=== PATIENT | male | born 1955 | race African-American/Black ===

== ENCOUNTER 2018-05-04 10:08 | Day surgery (SDC) | payer OTHER ==
[2018-05-03 09:34] VITALS: BMI 18.9
[2018-05-04] MEDS ORDERED: MIDAZOLAM HCL 2 MG/2 ML SINGLE DOSE VIAL ONE ×2 (11:49→12:42)
--- NOTE | 2018-05-04 12:14 | OP ---
Operative Note - Note: Operative Date: 05/04/18 Pre-Operative Diagnosis: ca prostate Operation: prostate cryoablation and cystoscopy Post-Operative Diagnosis: Same as Pre-op Surgeon: Milton Pabon Anesthesiologist/FINISHER TAILOR APPRENTICE: Nirmal Mcwilliams Anesthesia: Spinal Estimated Blood Loss (mls): 0 Drains & Tubes with Location: 18 fr molina Operative Report Dictated: Yes
[2018-05-04] MEDS ORDERED: ceFAZolin SODIUM 1 GM VIAL IVPB ONE (12:28)
[2018-05-04] MEDS ORDERED: GLYCOPYRROLATE 0.2 MG/1 ML VIAL ONE (12:32)
[2018-05-04] MEDS ORDERED: PROPOFOL 20 ML ONE ×2 (12:55→13:41)
[2018-05-04] MEDS ORDERED: SODIUM CHLORIDE 0.9% P/F 10 ML VIAL IJ ONE (13:08)
[2018-05-04] MEDS ORDERED: ceFAZolin SODIUM 1 GM VIAL ONE (13:08)
[2018-05-04] MEDS ORDERED: PROMETHAZINE HCL 25 MG/1 ML VIAL IVPUSH PRN (14:20)
[2018-05-04] MEDS ORDERED: ONDANSETRON 4 MG/2 ML VIAL IVPUSH PRN (14:20)
[2018-05-04] MEDS ORDERED: LACTATED RINGERS SOLUTION 1,000 ML IV SCH (14:30)
[2018-05-04] MEDS: LABETALOL HCL 5 MG/1 ML (100MG/20 ML VIAL) IVPUSH ONE ×2 (14:45→15:00)
[2018-05-04 17:51] VITALS: BP 152/91; PULSE 77; TEMP 98
--- NOTE | 2018-05-05 06:25 | OP ---
DATE OF OPERATION: 05/04/2018 PREOPERATIVE DIAGNOSIS: Prostate cancer. POSTOPERATIVE DIAGNOSIS: Prostate cancer. PROCEDURE: Prostate cryoablation, cystoscopy. SURGEON: Justin Pabon MD DRAPERY INSTALLER: None. ANESTHESIA: Spinal. ANESTHESIOLOGIST: Nirmal Mcwilliams CRNA and John Paul West MD SPECIMENS: None. CULTURES: None. DRAINS: An 18-Yakut Magana catheter. ESTIMATED BLOOD LOSS: Negligible. COMPLICATIONS: None. DESCRIPTION OF PROCEDURE: The patient was brought into the operating room and placed on the operating room table in supine position. After administration of spinal anesthesia, intravenous antibiotics were administered and the perineum and genitals were prepped and draped in the usual sterile manner with the patient in the dorsal lithotomy position. An 18-Yakut Magana catheter was placed per urethra. Then 10 mL was placed in the balloon. It was placed on gravity drainage and then the bladder was filled with 400 mL of sterile normal saline and clamped. Transrectal ultrasound was now inserted, and transrectal ultrasound of the prostate was done, and a plan was devised for the cryoablation. Now the grid and paddle were placed and the cryoablation probes, 4 of them were placed in the appropriate locations. The temperature probes were placed in the external exudative pharyngitis in Denonvilliers' fascia. Cystoscopy was done and confirmed that they were not penetrating the urethra nor were in the bladder. A Super Stiff guidewire was passed. The urethra warmer was passed over the Super Stiff guidewire prior to commencing the cryoablation. Now 2 freeze/thaw cycles were done freezing the right side of the prostate. At the end of the procedure, the probes were removed. Urethral warmer was left in place. At the end of the cryoablation, all probes and temperature sensors were removed. Urethral warmer was left in place. A sterile compressive dressing was placed. An 18-Yakut Magana catheter was replaced. He tolerated the procedure well and transferred to recovery in stable condition. JUSTIN PABON M.D. [id number]
== END 2018-05-04 17:45 | disposition home or self-care (01) ==
LOC: JASU-SURG 10:08
PROVIDERS: ATTEND Urology
PROC: 0V503ZZ Destruction of Prostate, Percutaneous Approach (ICD-10-PCS; principal; 2018-05-04 12:00)
DX: C61 Malignant neoplasm of prostate (principal)
CPT/HCPCS: 55873; C2618; 94760

== ENCOUNTER 2019-06-25 14:54 | Inpatient (IN) | payer OTHER ==
[2019-06-25 17:00] VITALS: BMI 16.8
--- NOTE | 2019-06-25 19:05 | HP ---
CIWA Score Nausea/Vomitin Muscle Tremors: 1-None Visible, but [place] Anxiety: 2 Agitation: 1-Slight > Activity Paroxysmal Sweats: 1-Minimal Palms Moist Orientation: 0-Oriented Tacttile Disturbances: 2-Mild Itch/Numbness/Burn Auditory Disturbances: 0-None Visual Disturbances: 0-None Headache: 0-None Present CIWA-Ar Total Score: 13 - Admission Criteria OASAS Guidelines: Admission for Medically Managed Detox: Requires at least one of the followin. CIWA greater than 12 2. Seizures within the past 24 hours 3. Delirium tremens within the past 24 hours 4. Hallucinations within the past 24 hours 5. Acute intervention needed for co occurring medical disorder 6. Acute intervention needed for co occurring psychiatric disorder 7. Severe withdrawal that cannot be handled at a lower level of care (continued vomiting, continued diarrhea, abnormal vital signs) requiring intravenous medication and/or fluids 8. Patient presents the following: CIWA greater than 12 Admission Criteria Met: Admission criteria met Admitting History and Physical - Admission History of Present Illness: 64 yo m w/ PMH HTN, HLD, CAD, CHF s/p CABG in 2004 w/ resultant chronic hiccups [facility] with detoxification from [facility]. Patient endorses drinking 2x 6 pack of 16 oz beers daily since he was 17. Last use yesterday. Patient endorses blackouts but denies seizures. Patient also endorses smoking or sniffing crack/cocaine, using ~$100 daily since he was 51. last use was yesterday. Patient is currently under treatment for his other chronic conditions. His home med list has been verified and can be seen in the EMR. Of note, the patient is on throazine for the treatment of his chronic hiccups which started after his CABG in 2004. CIWA 13, patient meets detox criteria; [facility] History Source: Patient Limitations to Obtaining History: No Limitations - Past Medical History Cardiovascular: Yes: CAD, CHF, HTN, Hyperlipdemia, Other (CABGx3) Pulmonary: Yes: COPD Hepatobiliary: No: Hepatitis C Infectious Disease: No: HIV - Past Surgical History Past Surgical History: Yes: CABG (x3 on 2004) - Smoking History Smoking history: Current every day smoker Aproximately how many cigarettes per day: 6 - Alcohol/Substance Use Hx Alcohol Use: Yes (beer occasional) Admission ROS [facility] - HPI Allergies/Adverse Reactions: Allergies Allergy/AdvReac Type Severity Reaction Status Date / Time No Known Allergies Allergy Verified 06/25/19 16:41 - Ebola screening Have you traveled outside of the country in the last 21 days: No Have you had contact with anyone from an Ebola affected area: No - Review of Systems Constitutional: Weakness EENT: reports: No Symptoms Reported Respiratory: reports: Cough, Shortness of Breath Cardiac: reports: No Symptoms Reported GI: reports: Nausea, Vomiting, Other (hiccups) : reports: No Symptoms Reported Musculoskeletal: reports: No Symptoms Reported Integumentary: reports: No Symptoms Reported Neuro: reports: Paresthesia (on fingertips) Psychiatric: reports: Judgement Intact, Mood/Affect Appropiate, Orientated x3 Patient History - Patient Medical History Hx Anemia: Yes Hx Asthma: Yes Hx Chronic Obstructive Pulmonary Disease (COPD): Yes Hx Cancer: Yes (prostate ca) Hx Cardiac Disorders: Yes (CAD s/p CABG, [place]) Hx Hypertension: Yes Hx Hypercholesterolemia: Yes Hx Gastrointestinal Disorders: Yes (gerd) Hx Genitourinary Disorders: (BPH) - Patient Surgical History Past Surgical History: Yes Hx Abdominal Surgery: Yes (hernia sx.right) Anesthesia Reaction: No - Smoking Cessation Smoking history: Current every day smoker Aproximately how many cigarettes per day: 6 Hx Chewing Tobacco Use: No Initiated information on smoking cessation: Yes 'Breaking Loose' booklet given: 06/25/19 - Substances abused Alcohol Substance route: Oral Frequency: Daily Amount used: 6 packs of beer. Age of first use: 17 Date of last use: 06/25/19 Cocaine Substance route: Smoking Frequency: Daily Amount used: 20 or more dollars. Age of first use: 52 Date of last use: 06/24/19 Admission Physical Exam [facility] - Vital Signs Vital Signs: Vital Signs - 24 hr 06/25/19 06/25/19 16:39 18:31 Temperature 98.7 F 98.7 F Pulse Rate 97 H 97 H Respiratory 20 20 Rate Blood Pressure 164/87 164/87 - Physical General Appearance: Yes: Nourished, Mild Distress, Cachetic, Tremorous, Anxious HEENTM: Yes: EOMI, BRYSON, Pharynx Normal Respiratory: Yes: Normal Breath Sounds, No Respiratory Distress, No Accessory Muscle Use, Crackles (in mid lung melgar and at hte bases) Neck: Yes: Trachea in good position Cardiology: Yes: Regular Rhythm, Regular Rate, S1, S2. No: JVD, Murmur, Gallop/ S3, Gallop/S4 Abdominal: Yes: Normal Bowel Sounds, Non Tender, Flat, Soft Neurological: Yes: manager of manufacturing II-XII NML intact, Fully Oriented, Alert, Motor Strength 5/5, Normal Mood/Affect, Normal Response Integumentary: Yes: Normal Color, Dry, Warm Breathalyzer - Breathalyzer Breathalyzer: 0 Urine Drug Screen - Test Device Lot number: [id number] Expiration date: 01/15/21 - Control Is test valid?: Yes - Results Drug screen NEGATIVE: No Urine drug screen results: ALEJANDRA-Cocaine Inpatient Rehab Admission - Rehab Decision to Admit Inpatient rehab admission?: No
--- NOTE | 2019-06-25 19:35 | PN ---
Teaching Attending Note Name of Resident: Milton Guerrero ATTENDING PHYSICIAN STATEMENT I saw and evaluated the patient. I reviewed the resident's note and discussed the case with the resident. I agree with the resident's findings and plan as documented. SUBJECTIVE: 64 yo with AUD, here for detox. Pt has been attending groups. h/o COPD, CHF, HTN , s/p bypass> hiccups since 2004. OBJECTIVE: Vital Signs - 24 hr 06/25/19 06/25/19 16:39 18:31 Temperature 98.7 F 98.7 F Pulse Rate 97 H 97 H Respiratory 20 20 Rate Blood Pressure 164/87 164/87 alert and oriented ASSESSMENT AND PLAN: AUD-start benzo detox protocol continued meds for chronic med problems
[2019-06-25] MEDS ORDERED: MENTHOL/PHENOL 1 EACH UD MM PRN (19:38)
[2019-06-25] MEDS ORDERED: BISMUTH SUBSALICYLATE 524 MG/30 ML UD PO PRN (19:38)
[2019-06-25] MEDS ORDERED: IBUPROFEN 400 MG TABLET (FP) PO PRN (19:38)
[2019-06-25] MEDS ORDERED: ACETAMINOPHEN 325 MG TABLET (FP) PO PRN ×2 (19:38)
[2019-06-25] MEDS ORDERED: MAG HYDROX/AL HYDROX/SIMETH 30 ML UNIT-DOSE CUP PO PRN (19:38)
[2019-06-25] MEDS ORDERED: MAGNESIUM CITRATE 300 ML BOTTLE PO PRN (19:38)
[2019-06-25] MEDS ORDERED: hydrOXYzine PAMOATE 25 MG CAPSULE (FP) PO PRN (19:38)
[2019-06-25] MEDS ORDERED: MAGNESIUM HYDROX 2400MG/30ML ORAL SUSPENSION 30 ML CUP PO PRN (19:38)
[2019-06-25] MEDS ORDERED: chlordiazePOXIDE HCL 25 MG CAPSULE PO PRN (19:38)
[2019-06-25] MEDS ORDERED: ALBUTEROL SO4 8 GM HFA INHALER IH PRN (19:45)
[2019-06-25] MEDS: THIAMINE HCL 100 MG TABLET (FP) PO SCH (22:11)
[2019-06-25] MEDS: chlordiazePOXIDE HCL 25 MG CAPSULE PO SCH (23:26)
[2019-06-25] MEDS: CARVEDILOL 25 MG TABLET (FP) PO SCH (23:26)
[2019-06-25] MEDS: chlorproMAZINE HCL 25 MG TABLET PO PRN (23:29)
[2019-06-26] MEDS: chlordiazePOXIDE HCL 25 MG CAPSULE PO SCH ×4 (05:27→22:23)
[2019-06-26 09:39] LABS: HEMATOCRIT 33.6 % (35.4-49); HEMOGLOBIN 11.1 GM/dL (11.7-16.9); MCH 29.6 pg (25.7-33.7); MCHC 32.9 g/dl (32.0-35.9); MEAN PLT VOLUME 7.5 fl (7.5-11.1); PLATELET COUNT 392 K/MM3 (134-434); RBC 3.73 M/mm3 (4.00-5.60); RDW 16.8 % (11.9-15.9); WHITE BLOOD COUNT 6.7 K/mm3 (4.0-10.0)
[2019-06-26 10:06] LABS: ALBUMIN 3.4 g/dl (3.4-5.0); BILIRUBIN,TOTAL 0.4 mg/dL (0.2-1); BLOOD UREA NITROGEN 8.6 mg/dL (7-18); CALCIUM 9.3 mg/dL (8.5-10.1); CREATININE 1.1 mg/dL (0.55-1.3); POTASSIUM 3.7 mmol/L (3.5-5.1); TOT PROT 6.1 g/dl (6.4-8.2)
[2019-06-26] MEDS: ASPIRIN 81 MG CHEWABLE TABLETS PO SCH (10:06)
[2019-06-26] MEDS: PRENATAL VITAMINS W/ FOLIC ACID TABLET (FP) PO SCH (10:06)
[2019-06-26] MEDS: FOLIC ACID 1 MG TABLET (FP) PO SCH (10:07)
[2019-06-26] MEDS: NICOTINE 21 MG/24 HOURS TOPICAL PATCH TD SCH (10:07)
[2019-06-26] MEDS: chlorproMAZINE HCL 25 MG TABLET PO PRN ×2 (10:09→16:51)
--- NOTE | 2019-06-26 10:36 | PN ---
S CIWA - CIWA Score Nausea/Vomitin-No Nausea/No Vomiting Muscle Tremors: 3 Anxiety: 3 Agitation: 3 Paroxysmal Sweats: 3 Orientation: 0-Oriented Tacttile Disturbances: 0-None Auditory Disturbances: 0-None Visual Disturbances: 0-None Headache: 0-None Present CIWA-Ar Total Score: 12 S Progress Note (SOAP) Subjective: nausea sweats shakes interrupted sleep body aches Objective: 06/26/19 10:35 Vital Signs Temperature 98.8 F 06/26/19 09:19 Pulse Rate 72 06/26/19 09:19 Respiratory Rate 18 06/26/19 09:19 Blood Pressure 141/65 06/26/19 09:19 O2 Sat by Pulse Oximetry (%) Laboratory Tests 06/26/19 06/26/19 06/26/19 08:00 08:00 08:00 WBC 6.7 RBC 3.73 L Hgb 11.1 L Hct 33.6 L MCV 90.0 MCH 29.6 MCHC 32.9 RDW 16.8 H Plt Count 392 MPV 7.5 Sodium 136 Potassium 3.7 Chloride 99 Carbon Dioxide 31 Anion Gap 6 L BUN 8.6 Creatinine 1.1 Est GFR (CKD-EPI)AfAm 81.22 Est GFR (CKD-EPI)NonAf 70.07 Random Glucose 138 H Calcium 9.3 Total Bilirubin 0.4 AST 8 L ALT 13 Alkaline Phosphatase 65 Total Protein 6.1 L Albumin 3.4 RPR Titer Nonreactive aaox3 ambulating no acute distress Assessment: 06/26/19 10:36 withdrawals Plan: continue detox increase fluids
[2019-06-26] MEDS ORDERED: TRIMETHOBENZAMIDE HCL 300 MG CAPSULE PO PRN (10:37)
--- NOTE | 2019-06-26 11:13 | EKG ---
Test Reason : Blood Pressure : / mmHG Vent. Rate : 079 BPM Atrial Rate : 079 BPM P-R Int : 124 ms QRS Dur : 102 ms QT Int : 382 ms P-R-T Axes : 074 070 062 degrees QTc Int : 438 ms NORMAL SINUS RHYTHM VOLTAGE CRITERIA FOR LEFT VENTRICULAR HYPERTROPHY ABNORMAL ECG NO PREVIOUS ECGS AVAILABLE Confirmed by SHELLY KAM MD ([id number]) on 06/26/2019 11:13:25 AM Referred By: Confirmed By:SHELLY KAM MD
[2019-06-26] MEDS: PANTOPRAZOLE 40 MG TABLET (FP) PO SCH (12:17)
[2019-06-26] MEDS: CARVEDILOL 25 MG TABLET (FP) PO SCH ×2 (12:17→22:23)
[2019-06-26] MEDS: ATORVASTATIN CA 10 MG TABLET (FP) PO SCH (22:23)
[2019-06-26] MEDS: THIAMINE HCL 100 MG TABLET (FP) PO SCH (22:23)
[2019-06-27] MEDS: chlordiazePOXIDE HCL 25 MG CAPSULE PO SCH ×4 (05:41→22:00)
[2019-06-27] MEDS: CARVEDILOL 25 MG TABLET (FP) PO SCH ×2 (10:05→22:00)
[2019-06-27] MEDS: ASPIRIN 81 MG CHEWABLE TABLETS PO SCH (10:05)
[2019-06-27] MEDS: PANTOPRAZOLE 40 MG TABLET (FP) PO SCH (10:05)
[2019-06-27] MEDS: PRENATAL VITAMINS W/ FOLIC ACID TABLET (FP) PO SCH (10:06)
[2019-06-27] MEDS: FOLIC ACID 1 MG TABLET (FP) PO SCH (10:07)
[2019-06-27] MEDS: NICOTINE 21 MG/24 HOURS TOPICAL PATCH TD SCH (10:08)
--- NOTE | 2019-06-27 10:24 | PN ---
S CIWA - CIWA Score Nausea/Vomitin-No Nausea/No Vomiting Muscle Tremors: 3 Anxiety: 2 Agitation: 3 Paroxysmal Sweats: 2 Orientation: 0-Oriented Tacttile Disturbances: 0-None Auditory Disturbances: 0-None Visual Disturbances: 0-None Headache: 0-None Present CIWA-Ar Total Score: 10 S Progress Note (SOAP) Subjective: hiccups..I need my thorazine scheduled for more than twice a day. sweats irritable Objective: 06/27/19 10:23 Vital Signs Temperature 97.1 F L 06/27/19 09:32 Pulse Rate 84 06/27/19 09:32 Respiratory Rate 18 06/27/19 09:32 Blood Pressure 150/78 06/27/19 09:32 O2 Sat by Pulse Oximetry (%) Laboratory Tests 06/26/19 06/26/19 06/26/19 08:00 08:00 08:00 WBC 6.7 RBC 3.73 L Hgb 11.1 L Hct 33.6 L MCV 90.0 MCH 29.6 MCHC 32.9 RDW 16.8 H Plt Count 392 MPV 7.5 Sodium 136 Potassium 3.7 Chloride 99 Carbon Dioxide 31 Anion Gap 6 L BUN 8.6 Creatinine 1.1 Est GFR (CKD-EPI)AfAm 81.22 Est GFR (CKD-EPI)NonAf 70.07 Random Glucose 138 H Calcium 9.3 Total Bilirubin 0.4 AST 8 L ALT 13 Alkaline Phosphatase 65 Total Protein 6.1 L Albumin 3.4 RPR Titer Nonreactive aaox3 ambulating no acute distress Assessment: 06/27/19 10:23 withdrawals Plan: thorazine qid ordered prn for hiccups increase fluids continue detox
[2019-06-27] MEDS: chlorproMAZINE HCL 25 MG TABLET PO PRN (18:34)
[2019-06-27] MEDS: ATORVASTATIN CA 10 MG TABLET (FP) PO SCH (22:00)
[2019-06-27] MEDS: MELATONIN 5 MG TABLETS PO PRN (22:00)
[2019-06-27] MEDS: THIAMINE HCL 100 MG TABLET (FP) PO SCH (22:00)
[2019-06-28] MEDS ORDERED: chlordiazePOXIDE HCL 10 MG CAPSULE PO PRN
[2019-06-28] MEDS: chlordiazePOXIDE HCL 10 MG CAPSULE PO SCH ×4 (06:28→22:08)
[2019-06-28] MEDS: chlorproMAZINE HCL 25 MG TABLET PO PRN ×2 (06:31→22:11)
[2019-06-28] MEDS: ASPIRIN 81 MG CHEWABLE TABLETS PO SCH (10:20)
[2019-06-28] MEDS: FOLIC ACID 1 MG TABLET (FP) PO SCH (10:20)
[2019-06-28] MEDS: PANTOPRAZOLE 40 MG TABLET (FP) PO SCH (10:20)
[2019-06-28] MEDS: PRENATAL VITAMINS W/ FOLIC ACID TABLET (FP) PO SCH (10:20)
[2019-06-28] MEDS: CARVEDILOL 25 MG TABLET (FP) PO SCH ×2 (10:20→22:07)
[2019-06-28] MEDS: METHOCARBAMOL 500 MG TABLET PO PRN (10:21)
[2019-06-28] MEDS: NICOTINE 21 MG/24 HOURS TOPICAL PATCH TD SCH (10:21)
--- NOTE | 2019-06-28 11:02 | PN ---
S CIWA - CIWA Score Nausea/Vomitin-No Nausea/No Vomiting Muscle Tremors: 3 Anxiety: 2 Agitation: 2 Paroxysmal Sweats: 2 Orientation: 0-Oriented Tacttile Disturbances: 0-None Auditory Disturbances: 0-None Visual Disturbances: 0-None Headache: 0-None Present CIWA-Ar Total Score: 9 BHS Progress Note (SOAP) Subjective: hiccups sweats irritable Objective: 06/28/19 11:02 Vital Signs Temperature 98.2 F 06/28/19 10:14 Pulse Rate 69 06/28/19 10:14 Respiratory Rate 18 06/28/19 10:14 Blood Pressure 145/77 06/28/19 10:14 O2 Sat by Pulse Oximetry (%) aaox3 ambulating no acute distress Assessment: 06/28/19 11:02 withdrawals Plan: continue detox thorazine prn roboxin prn
[2019-06-28] MEDS: ATORVASTATIN CA 10 MG TABLET (FP) PO SCH (22:07)
[2019-06-28] MEDS: MELATONIN 5 MG TABLETS PO PRN (22:08)
[2019-06-28] MEDS: THIAMINE HCL 100 MG TABLET (FP) PO SCH (22:08)
[2019-06-29] MEDS: chlordiazePOXIDE HCL 10 MG CAPSULE PO SCH ×2 (05:59→17:51)
[2019-06-29] MEDS: CARVEDILOL 25 MG TABLET (FP) PO SCH ×2 (09:28→21:55)
[2019-06-29] MEDS: ASPIRIN 81 MG CHEWABLE TABLETS PO SCH (09:28)
[2019-06-29] MEDS: PRENATAL VITAMINS W/ FOLIC ACID TABLET (FP) PO SCH (09:28)
[2019-06-29] MEDS: PANTOPRAZOLE 40 MG TABLET (FP) PO SCH (09:28)
[2019-06-29] MEDS: chlorproMAZINE HCL 25 MG TABLET PO PRN ×2 (09:28→21:56)
[2019-06-29] MEDS: FOLIC ACID 1 MG TABLET (FP) PO SCH (10:44)
[2019-06-29] MEDS: NICOTINE 21 MG/24 HOURS TOPICAL PATCH TD SCH (10:44)
--- NOTE | 2019-06-29 12:28 | PN ---
S CIWA - CIWA Score Nausea/Vomitin-No Nausea/No Vomiting Muscle Tremors: 2 Anxiety: 1-Mildly Anxious Agitation: 1-Slight > Activity Paroxysmal Sweats: 1-Minimal Palms Moist Orientation: 0-Oriented Tacttile Disturbances: 0-None Auditory Disturbances: 0-None Visual Disturbances: 0-None Headache: 0-None Present CIWA-Ar Total Score: 5 BHS Progress Note (SOAP) Subjective: feeling better Objective: 06/29/19 12:28 Vital Signs Temperature 98.6 F 06/29/19 09:35 Pulse Rate 69 06/29/19 09:35 Respiratory Rate 18 06/29/19 09:35 Blood Pressure 138/75 06/29/19 09:35 O2 Sat by Pulse Oximetry (%) aaox3 ambulating no acute distress Assessment: 06/29/19 12:28 withdrawals Plan: continue detox d/c in am
[2019-06-29] MEDS: METHOCARBAMOL 500 MG TABLET PO PRN (17:51)
[2019-06-29] MEDS: THIAMINE HCL 100 MG TABLET (FP) PO SCH (21:55)
[2019-06-29] MEDS: ATORVASTATIN CA 10 MG TABLET (FP) PO SCH (21:55)
[2019-06-29] MEDS: MELATONIN 5 MG TABLETS PO PRN (21:55)
[2019-06-30] MEDS ORDERED: chlordiazePOXIDE HCL 10 MG CAPSULE PO ONE (05:00)
[2019-06-30] MEDS: chlordiazePOXIDE HCL 10 MG CAPSULE PO SCH (05:33)
[2019-06-30] MEDS: METHOCARBAMOL 500 MG TABLET PO PRN (05:35)
[2019-06-30 06:44] VITALS: BP 136/80; PULSE 69; TEMP 98.1
--- NOTE | 2019-06-30 17:11 | DS ---
[facility] Detox Discharge Summary Admission Date: 06/25/19 Discharge Date: 06/30/19 - History Present History: Alcohol Dependence, Cocaine Dependence Additional Comments: Patient completed detox successfully and discharged safely. Patient to follow up with PCP within 1-2 weeks. Pertinent Past History: HTN HLD CAD, s/p CABG CHF HCV Nicotine dependence BPH History of prostate cancer - Physical Exam Results Vital Signs: Vital Signs Temperature 98.1 F 06/30/19 06:44 Pulse Rate 69 06/30/19 06:44 Respiratory Rate 18 06/30/19 06:44 Blood Pressure 136/80 06/30/19 06:44 O2 Sat by Pulse Oximetry (%) Pertinent Admission Physical Exam Findings: Withdrawal sxs Laboratory Tests 06/26/19 06/26/19 06/26/19 08:00 08:00 08:00 WBC 6.7 RBC 3.73 L Hgb 11.1 L Hct 33.6 L MCV 90.0 MCH 29.6 MCHC 32.9 RDW 16.8 H Plt Count 392 MPV 7.5 Sodium 136 Potassium 3.7 Chloride 99 Carbon Dioxide 31 Anion Gap 6 L BUN 8.6 Creatinine 1.1 Est GFR (CKD-EPI)AfAm 81.22 Est GFR (CKD-EPI)NonAf 70.07 Random Glucose 138 H Calcium 9.3 Total Bilirubin 0.4 AST 8 L ALT 13 Alkaline Phosphatase 65 Total Protein 6.1 L Albumin 3.4 RPR Titer Nonreactive Labs reviewed: serum glucose 138 (high), denies dm, follow up with PCP for further evaluation; also noted with mild anemia: follow up with PCP for management - Treatment Hospital Course: Detox Protocol Followed, Detoxed Safely, Responded well, Discharged Condition Good - Medication Discharge Medications: Ambulatory Orders Albuterol Sulfate Inhaler - [Ventolin Hfa Inhaler -] 1 - 2 inh PO Q4H 05/03/18 Aspirin [ASA -] 81 mg PO DAILY 05/03/18 Atorvastatin Calcium 10 mg PO DAILY 05/03/18 Carvedilol 25 mg PO BID 05/03/18 Pantoprazole Sodium 40 mg PO DAILY 05/03/18 Folic Acid 1 mg PO DAILY 05/04/18 Thiamine HCl [Vitamin B1] 100 mg PO DAILY 05/04/18 Chlorpromazine HCl 50 mg PO BID 06/25/19 - Diagnosis (1) Anemia Status: Acute (2) Hyperglycemia Status: Acute (3) HTN (hypertension), benign Status: Chronic (4) HLD (hyperlipidemia) Status: Chronic (5) CAD (coronary artery disease) of artery bypass graft Status: Chronic (6) Nicotine dependence Status: Chronic (7) Hepatitis C Status: Chronic (8) Alcohol dependence with withdrawal, uncomplicated Status: Acute (9) Cocaine dependence, uncomplicated Status: Chronic (10) BPH (benign prostatic hyperplasia) Status: Chronic - AMA Did Patient Leave Against Medical Advice: No (Follow up with PCP within 1-2 weeks)
== END 2019-06-30 09:25 | disposition home or self-care (01) | DRG 897 ==
LOC: YASAS 14:54 → Y6N 19:41
PROVIDERS: ADMIT Allergy & Immunology; ATTEND Allergy & Immunology
PROC: HZ2ZZZZ Detoxification Services for Substance Abuse Treatment (ICD-10-PCS; principal; 2019-06-25)
DX: F10.230 Alcohol dependence with withdrawal, uncomplicated (principal); F14.20 Cocaine dependence, uncomplicated; F17.210 Nicotine dependence, cigarettes, uncomplicated; D64.9 Anemia, unspecified; I25.10 Atherosclerotic heart disease of native coronary artery without angina pectoris; I11.0 Hypertensive heart disease with heart failure; Z95.1 Presence of aortocoronary bypass graft; I50.9 Heart failure, unspecified; J44.9 Chronic obstructive pulmonary disease, unspecified; K21.9 Gastro-esophageal reflux disease without esophagitis; E78.5 Hyperlipidemia, unspecified; B18.2 Chronic viral hepatitis C; N40.0 Benign prostatic hyperplasia without lower urinary tract symptoms; R73.9 Hyperglycemia, unspecified; R06.6 Hiccough; Z85.46 Personal history of malignant neoplasm of prostate
CPT/HCPCS: 36415; 80053; 85027; 86593; 90853; 93005; 93010

== ENCOUNTER 2019-08-22 12:31 | Inpatient (IN) | payer MEDICARE ==
--- NOTE | 2019-08-22 12:45 | BHS.RME ---
Substance Use & Tx History - Substance Use History Alcohol Substance amount: 4-5 cans beer Frequency of use: Daily Substance route: Oral Date of Last Use: 08/22/19 (10am) Cocaine (Crack) Substance amount: $100 Frequency of use: Daily Substance route: Smoking Date of Last Use: 08/21/19 Nicotine Substance amount: 1/2 pacjk Frequency of use: Daily Substance route: Smoking Date of Last Use: 08/22/19 - Last Treatment Date of last treatment: 06/2019 Treatment type: Substance Use Disorder (CHARISSE) Physical/Psych/Mental Status - Behavior General Behavior: Increased activity (restlessness, agitation) Eye Contact: Normal - Cooperativeness Cooperativeness: Cooperative - Thinking Thought Processes: Tight, Logical, Goal Directed Thought content: Future oriented - Physical Health Problems Is patient presently having any pain?: No Does patient presently have any injuries (include location): No Does patient currently have a fever: No Is patient : No CIWA Nausea/Vomitin Muscle Tremors: 3 Anxiety: 3 Agitation: 3 Paroxysmal Sweats: 1-Minimal Palms Moist Orientation: 0-Oriented Tacttile Disturbances: 0-None Auditory Disturbances: 0-None Visual Disturbances: 0-None Headache: 0-None Present CIWA-Ar Total Score: 12
--- NOTE | 2019-08-22 13:26 | HP ---
CIWA Score Nausea/Vomitin Muscle Tremors: 3 Anxiety: 3 Agitation: 3 Paroxysmal Sweats: 1-Minimal Palms Moist Orientation: 0-Oriented Tacttile Disturbances: 0-None Auditory Disturbances: 0-None Visual Disturbances: 0-None Headache: 0-None Present CIWA-Ar Total Score: 12 - Admission Criteria OASAS Guidelines: Admission for Medically Managed Detox: Requires at least one of the followin. CIWA greater than 12 2. Seizures within the past 24 hours 3. Delirium tremens within the past 24 hours 4. Hallucinations within the past 24 hours 5. Acute intervention needed for co occurring medical disorder 6. Acute intervention needed for co occurring psychiatric disorder 7. Severe withdrawal that cannot be handled at a lower level of care (continued vomiting, continued diarrhea, abnormal vital signs) requiring intravenous medication and/or fluids 8. Admitting History and Physical - Admission Chief Complaint: "I need help to stay clean" History of Present Illness: 64 year old male with history of alcohol dependence with mild withdrawals. He was last here in 06/2019 when he completed detox and then was referred to rehab but there were no available beds. He relapsed immediately after that. PMH: Asthma/COPD, HTN, Cad by [place] 2004, Chronic Hiccoughs. Psurg: CABBGX3 in 2004 Psych: None Alcohol: 4-5 cans of beer daily and started age 17 and last used this morning. Crack: $100 daily smoking and first use at age 39 and last use on 08/21/19 Nicotine: 1/2 pack per day started at age 17 He meets criteria for detox due to high risk for relapse because of co-morbid disorder and poor environment for recovery and poor judgment. He was mandated on Probation for DWI in 12/2018 and is still on probation. History Source: Patient Limitations to Obtaining History: No Limitations - Past Medical History Cardiovascular: Yes: CAD, CHF, HTN, Hyperlipdemia, Other (CABGx3) Pulmonary: Yes: COPD - Past Surgical History Past Surgical History: Yes: CABG (x3 on 2004) - Smoking History Smoking history: Current every day smoker Aproximately how many cigarettes per day: 10 - Alcohol/Substance Use Hx Alcohol Use: Yes (beer occasional) - Social History Usual Living Arrangement: Yes: Alone Do you think of yourself as: Straight/Heterosexual ADL: Independent Occupation: retired, building guard deputy sheriff History of Recent Travel: No Admission ROS [facility] Allergies/Adverse Reactions: Allergies Allergy/AdvReac Type Severity Reaction Status Date / Time No Known Allergies Allergy Verified 06/25/19 16:41 Exam Limitations: No Limitations - Ebola screening Have you traveled outside of the country in the last 21 days: No Have you had contact with anyone from an Ebola affected area: No Have you been sick,other than usual withdrawal symptoms: No Do you have a fever: No - Review of Systems Constitutional: No Symptoms Reported EENT: reports: No Symptoms Reported Respiratory: reports: No Symptoms reported Cardiac: reports: No Symptoms Reported GI: reports: No Symptoms Reported : reports: No Symptoms Reported Musculoskeletal: reports: No Symptoms Reported Integumentary: reports: No Symptoms Reported Neuro: reports: No Symptoms reported Endocrine: reports: No Symptoms Reported Hematology: reports: No Symptoms Reported Psychiatric: reports: Judgement Intact, Mood/Affect Appropiate, Orientated x3 Other Systems: Reviewed and Negative Patient History - Patient Medical History Hx Anemia: Yes Hx Asthma: Yes Hx Chronic Obstructive Pulmonary Disease (COPD): Yes Hx Cancer: Yes (prostate ca) Hx Cardiac Disorders: Yes (CAD s/p CABG, [place]) Hx Hypertension: Yes Hx Hypercholesterolemia: Yes Hx Seizures: No Hx Diabetes: No Hx Gastrointestinal Disorders: Yes (gerd) Hx Genitourinary Disorders: (BPH) Hx Sexually Transmitted Disorders: No Hx Renal Disease (ESRD): No Hx Depression: Yes Hx Suicide Attempt: No Hx Schizophrenia: No - Patient Surgical History Past Surgical History: Yes Hx Neurologic Surgery: No Hx Cataract Extraction: No Hx Cardiac Surgery: No Hx Lung Surgery: No Hx Breast Surgery: No Hx Breast Biopsy: No Hx Abdominal Surgery: Yes (hernia sx.right) Hx Appendectomy: No Hx Cholecystectomy: No Hx Genitourinary Surgery: No Hx Section: No Hx Orthopedic Surgery: No Anesthesia Reaction: No - PPD History Previous Implant?: Yes Documented Results: Negative w/proof Implanted On Prior [facility] Admission?: Yes Date: 06/28/19 Results: negative PPD to be Administered?: No - Smoking Cessation Smoking history: Current every day smoker Aproximately how many cigarettes per day: 10 Hx Chewing Tobacco Use: No Initiated information on smoking cessation: Yes 'Breaking Loose' booklet given: 08/22/19 - Substances abused Alcohol Substance route: Oral Frequency: Daily Amount used: 4-5 beers Age of first use: 17 Crack Substance route: Smoking Frequency: Daily Amount used: $100 Age of first use: 39 Date of last use: 08/21/19 Admission Physical Exam [facility] - Physical General Appearance: Yes: Mild Distress, Tremorous, Irritable, Sweating HEENTM: Yes: EOMI, Hearing grossly Normal, Normal ENT Inspection, Normocephalic, Normal Voice, BRYSON, Pharynx Normal, Tm's normal Respiratory: Yes: Chest Non-Tender, Lungs Clear, Normal Breath Sounds, No Respiratory Distress, No Accessory Muscle Use Neck: Yes: No masses,lesions,Nodules, Supple, Trachea in good position Breast: Yes: Within Normal Limits Cardiology: Yes: Regular Rhythm, Regular Rate, S1, S2 Abdominal: Yes: Non Tender, Flat, Soft Genitourinary: Yes: Within Normal Limits Back: Yes: Normal Inspection Musculoskeletal: Yes: full range of Motion, Gait Steady, Pelvis Stable Extremities: Yes: Normal Capillary Refill, Normal Inspection, Normal Range of Motion, Non-Tender 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, Fully Oriented, Alert, Motor Strength 5/5, Normal Mood/Affect, Normal Response Integumentary: Yes: Normal Color, Warm Lymphatic: Yes: Within Normal Limits - Diagnostic (1) Alcohol dependence with withdrawal, uncomplicated Current Visit: Yes Status: Acute (2) Anemia Current Visit: Yes Status: Acute (3) BPH (benign prostatic hyperplasia) Current Visit: Yes Status: Chronic (4) CAD (coronary artery disease) of artery bypass graft Current Visit: Yes Status: Chronic (5) Cocaine dependence, uncomplicated Current Visit: Yes Status: Chronic (6) HLD (hyperlipidemia) Current Visit: Yes Status: Chronic (7) HTN (hypertension), benign Current Visit: Yes Status: Chronic (8) Nicotine dependence Current Visit: Yes Status: Chronic Cleared for Admission [facility] - Detox or Rehab [facility] Level of Care: Medically Managed Detox Regimen/Protocol: Librium Claeared for Rehab Admission: No Screened but not Admitted - Documentation of Visit Screened but not Admitted: No Breathalyzer - Breathalyzer Breathalyzer: 0.009 Urine Drug Screen - Test Device Lot number: [id number] Expiration date: 05/18/21 - Control Is test valid?: Yes - Results Drug screen NEGATIVE: No Urine drug screen results: ALEJANDRA-Cocaine Inpatient Rehab Admission - Rehab Decision to Admit Inpatient rehab admission?: No
[2019-08-22] MEDS ORDERED: NICOTINE POLACRILEX 2 MG GUM BUC PRN (13:32)
[2019-08-22] MEDS ORDERED: ACETAMINOPHEN 325 MG TABLET (FP) PO PRN ×2 (13:32)
[2019-08-22] MEDS ORDERED: MENTHOL/PHENOL 1 EACH UD MM PRN (13:32)
[2019-08-22] MEDS ORDERED: IBUPROFEN 400 MG TABLET (FP) PO PRN (13:32)
[2019-08-22] MEDS ORDERED: chlordiazePOXIDE HCL 25 MG CAPSULE PO PRN (13:32)
[2019-08-22] MEDS ORDERED: MAGNESIUM CITRATE 300 ML BOTTLE PO PRN (13:32)
[2019-08-22] MEDS ORDERED: MAGNESIUM HYDROX 2400MG/30ML ORAL SUSPENSION 30 ML CUP PO PRN (13:32)
[2019-08-22] MEDS ORDERED: MAG HYDROX/AL HYDROX/SIMETH 30 ML UNIT-DOSE CUP PO PRN (13:32)
[2019-08-22 14:47] VITALS: BMI 17.3
[2019-08-22] MEDS ORDERED: BISMUTH SUBSALICYLATE 262 MG/15 ML BTL PO PRN (15:42)
[2019-08-22] MEDS ORDERED: ONDANSETRON *ODT* 4 MG TABLET SL ONE (15:45)
[2019-08-22] MEDS: chlordiazePOXIDE HCL 25 MG CAPSULE PO SCH ×3 (15:53→23:01)
[2019-08-22] MEDS: ALBUTEROL SO4 8 GM HFA INHALER IH SCH ×3 (15:56→23:01)
[2019-08-22] MEDS: PANTOPRAZOLE 40 MG TABLET PO SCH (16:00)
[2019-08-22] MEDS: PRENATAL VITAMINS W/ FOLIC ACID TABLET (FP) PO SCH (16:00)
[2019-08-22] MEDS: ASPIRIN 81 MG CHEWABLE TABLETS PO SCH (16:00)
[2019-08-22] MEDS: CARVEDILOL 25 MG TABLET (FP) PO SCH ×2 (16:00→23:08)
[2019-08-22] MEDS: hydrOXYzine PAMOATE 25 MG CAPSULE (FP) PO SCH ×3 (16:01→23:03)
[2019-08-22] MEDS: NICOTINE 7 MG/24 HOURS TOPICAL PATCH TD SCH (16:02)
[2019-08-22] MEDS: METHOCARBAMOL 500 MG TABLET PO PRN (19:09)
[2019-08-22 19:41] LABS: HEMATOCRIT 34.6 % (35.4-49); HEMOGLOBIN 11.8 GM/dL (11.7-16.9); MCH 31.1 pg (25.7-33.7); MEAN CELL VOLUME 91.5 fl (80-96); MEAN PLT VOLUME 8.1 fl (7.5-11.1); PLATELET COUNT 382 K/MM3 (134-434); RBC 3.79 M/mm3 (4.00-5.60); RDW 15.3 % (11.9-15.9); WHITE BLOOD COUNT 5.9 K/mm3 (4.0-10.0)
[2019-08-22 20:11] LABS: ALBUMIN 3.8 g/dl (3.4-5.0); BILIRUBIN,TOTAL 0.5 mg/dL (0.2-1); BLOOD UREA NITROGEN 13.5 mg/dL (7-18); CALCIUM 9.6 mg/dL (8.5-10.1); CREATININE 1.1 mg/dL (0.55-1.3); POTASSIUM 4.2 mmol/L (3.5-5.1); TOT PROT 7.4 g/dl (6.4-8.2)
[2019-08-22] MEDS: THIAMINE HCL 100 MG TABLET (FP) PO SCH (23:02)
[2019-08-22] MEDS: ATORVASTATIN CA 10 MG TABLET (FP) PO SCH (23:02)
[2019-08-22] MEDS: MELATONIN 5 MG TABLETS PO SCH (23:02)
[2019-08-23] MEDS: ALBUTEROL SO4 8 GM HFA INHALER IH SCH ×6 (02:29→22:15)
[2019-08-23] MEDS: hydrOXYzine PAMOATE 25 MG CAPSULE (FP) PO SCH ×5 (05:22→22:15)
[2019-08-23] MEDS: chlordiazePOXIDE HCL 25 MG CAPSULE PO SCH ×4 (05:22→22:15)
[2019-08-23] MEDS: PRENATAL VITAMINS W/ FOLIC ACID TABLET (FP) PO SCH (10:08)
[2019-08-23] MEDS: CARVEDILOL 25 MG TABLET (FP) PO SCH ×2 (10:08→22:15)
[2019-08-23] MEDS: PANTOPRAZOLE 40 MG TABLET PO SCH (10:08)
[2019-08-23] MEDS: ASPIRIN 81 MG CHEWABLE TABLETS PO SCH (10:08)
[2019-08-23] MEDS: NICOTINE 7 MG/24 HOURS TOPICAL PATCH TD SCH (10:11)
--- NOTE | 2019-08-23 13:44 | PN ---
S CIWA - CIWA Score Nausea/Vomitin Muscle Tremors: 2 Anxiety: 2 Agitation: 2 Paroxysmal Sweats: No Perspiration Orientation: 0-Oriented Tacttile Disturbances: 1-Very Mild Itch/Numbness Auditory Disturbances: 0-None Visual Disturbances: 0-None Headache: 1-Very Mild CIWA-Ar Total Score: 10 S Progress Note (SOAP) Subjective: alert,irritable,anxious,interrupted sleep,tremor,pain in the body Objective: 08/23/19 13:40 Vital Signs Temperature 97.8 F 08/23/19 08:30 Pulse Rate 64 08/23/19 08:30 Respiratory Rate 16 08/23/19 08:30 Blood Pressure 122/72 08/23/19 08:30 O2 Sat by Pulse Oximetry (%) 08/23/19 13:41 Laboratory Last Values WBC 5.9 K/mm3 (4.0-10.0) 08/22/19 12:50 RBC 3.79 M/mm3 (4.00-5.60) L 08/22/19 12:50 Hgb 11.8 GM/dL (11.7-16.9) 08/22/19 12:50 Hct 34.6 % (35.4-49) L 08/22/19 12:50 MCV 91.5 fl (80-96) 08/22/19 12:50 MCH 31.1 pg (25.7-33.7) 08/22/19 12:50 MCHC 34.0 g/dl (32.0-35.9) 08/22/19 12:50 RDW 15.3 % (11.9-15.9) 08/22/19 12:50 Plt Count 382 K/MM3 (134-434) 08/22/19 12:50 MPV 8.1 fl (7.5-11.1) 08/22/19 12:50 Sodium 138 mmol/L (136-145) 08/22/19 12:50 Potassium 4.2 mmol/L (3.5-5.1) 08/22/19 12:50 Chloride 104 mmol/L (98-107) 08/22/19 12:50 Carbon Dioxide 27 mmol/L (21-32) 08/22/19 12:50 Anion Gap 7 MMOL/L (8-16) L 08/22/19 12:50 BUN 13.5 mg/dL (7-18) 08/22/19 12:50 Creatinine 1.1 mg/dL (0.55-1.3) 08/22/19 12:50 Est GFR (CKD-EPI)AfAm 81.22 08/22/19 12:50 Est GFR (CKD-EPI)NonAf 70.07 08/22/19 12:50 Random Glucose 81 mg/dL (74-106) 08/22/19 12:50 Calcium 9.6 mg/dL (8.5-10.1) 08/22/19 12:50 Total Bilirubin 0.5 mg/dL (0.2-1) 08/22/19 12:50 AST 10 U/L (15-37) L 08/22/19 12:50 ALT 14 U/L (13-61) 08/22/19 12:50 Alkaline Phosphatase 94 U/L (45-117) 08/22/19 12:50 Total Protein 7.4 g/dl (6.4-8.2) 08/22/19 12:50 Albumin 3.8 g/dl (3.4-5.0) 08/22/19 12:50 RPR Titer Nonreactive (NONREACTIVE) 08/22/19 12:50 Assessment: 08/23/19 13:43 withdrawal symptom Plan: continue detox librium regimen
[2019-08-23] MEDS: THIAMINE HCL 100 MG TABLET (FP) PO SCH (22:14)
[2019-08-23] MEDS: MELATONIN 5 MG TABLETS PO SCH (22:14)
[2019-08-23] MEDS: ATORVASTATIN CA 10 MG TABLET (FP) PO SCH (22:15)
[2019-08-24] MEDS: hydrOXYzine PAMOATE 25 MG CAPSULE (FP) PO SCH ×5 (06:29→23:15)
[2019-08-24] MEDS: chlordiazePOXIDE HCL 25 MG CAPSULE PO SCH ×4 (06:29→23:14)
[2019-08-24] MEDS: ALBUTEROL SO4 8 GM HFA INHALER IH SCH ×5 (06:30→23:14)
[2019-08-24] MEDS: PRENATAL VITAMINS W/ FOLIC ACID TABLET (FP) PO SCH (10:48)
[2019-08-24] MEDS: ASPIRIN 81 MG CHEWABLE TABLETS PO SCH (10:48)
[2019-08-24] MEDS: NICOTINE 7 MG/24 HOURS TOPICAL PATCH TD SCH (10:48)
[2019-08-24] MEDS: PANTOPRAZOLE 40 MG TABLET PO SCH (10:48)
[2019-08-24] MEDS: CARVEDILOL 25 MG TABLET (FP) PO SCH ×2 (10:48→23:15)
--- NOTE | 2019-08-24 12:27 | PN ---
[facility] CIWA - CIWA Score Nausea/Vomitin-No Nausea/No Vomiting Muscle Tremors: 2 Anxiety: 3 Agitation: 0-Normal Activity Paroxysmal Sweats: 3 Orientation: 0-Oriented Tacttile Disturbances: 0-None Auditory Disturbances: 0-None Visual Disturbances: 0-None Headache: 1-Very Mild CIWA-Ar Total Score: 9 S Progress Note (SOAP) Subjective: c/o anxiety, shakes, sweats, and mild headache. Objective: 08/24/19 12:26 Vital Signs 08/24/19 08/24/19 06:34 08:35 Temperature 97.9 F 98.0 F Pulse Rate 55 L 63 Respiratory 18 18 Rate Blood Pressure 116/62 145/76 Laboratory Last Values WBC 5.9 K/mm3 (4.0-10.0) 08/22/19 12:50 RBC 3.79 M/mm3 (4.00-5.60) L 08/22/19 12:50 Hgb 11.8 GM/dL (11.7-16.9) 08/22/19 12:50 Hct 34.6 % (35.4-49) L 08/22/19 12:50 MCV 91.5 fl (80-96) 08/22/19 12:50 MCH 31.1 pg (25.7-33.7) 08/22/19 12:50 MCHC 34.0 g/dl (32.0-35.9) 08/22/19 12:50 RDW 15.3 % (11.9-15.9) 08/22/19 12:50 Plt Count 382 K/MM3 (134-434) 08/22/19 12:50 MPV 8.1 fl (7.5-11.1) 08/22/19 12:50 Sodium 138 mmol/L (136-145) 08/22/19 12:50 Potassium 4.2 mmol/L (3.5-5.1) 08/22/19 12:50 Chloride 104 mmol/L (98-107) 08/22/19 12:50 Carbon Dioxide 27 mmol/L (21-32) 08/22/19 12:50 Anion Gap 7 MMOL/L (8-16) L 08/22/19 12:50 BUN 13.5 mg/dL (7-18) 08/22/19 12:50 Creatinine 1.1 mg/dL (0.55-1.3) 08/22/19 12:50 Est GFR (CKD-EPI)AfAm 81.22 08/22/19 12:50 Est GFR (CKD-EPI)NonAf 70.07 08/22/19 12:50 Random Glucose 81 mg/dL (74-106) 08/22/19 12:50 Calcium 9.6 mg/dL (8.5-10.1) 08/22/19 12:50 Total Bilirubin 0.5 mg/dL (0.2-1) 08/22/19 12:50 AST 10 U/L (15-37) L 08/22/19 12:50 ALT 14 U/L (13-61) 08/22/19 12:50 Alkaline Phosphatase 94 U/L (45-117) 08/22/19 12:50 Total Protein 7.4 g/dl (6.4-8.2) 08/22/19 12:50 Albumin 3.8 g/dl (3.4-5.0) 08/22/19 12:50 RPR Titer Nonreactive (NONREACTIVE) 08/22/19 12:50 Labs noted. Assessment: 08/24/19 12:27 AOX3, in no acute respiratory distress. Full ROM, ambulating in the unit. Withdrawal symptoms. Plan: continue detox.
[2019-08-24] MEDS: THIAMINE HCL 100 MG TABLET (FP) PO SCH (23:15)
[2019-08-24] MEDS: MELATONIN 5 MG TABLETS PO SCH (23:15)
[2019-08-24] MEDS: ATORVASTATIN CA 10 MG TABLET (FP) PO SCH (23:15)
[2019-08-25] MEDS ORDERED: chlordiazePOXIDE HCL 10 MG CAPSULE PO PRN
[2019-08-25] MEDS: ALBUTEROL SO4 8 GM HFA INHALER IH SCH ×6 (01:57→23:05)
[2019-08-25] MEDS: hydrOXYzine PAMOATE 25 MG CAPSULE (FP) PO SCH ×5 (06:20→23:05)
[2019-08-25] MEDS: chlordiazePOXIDE HCL 10 MG CAPSULE PO SCH ×4 (06:52→23:04)
[2019-08-25] MEDS: PRENATAL VITAMINS W/ FOLIC ACID TABLET (FP) PO SCH (10:11)
[2019-08-25] MEDS: CARVEDILOL 25 MG TABLET (FP) PO SCH ×2 (10:11→23:04)
[2019-08-25] MEDS: PANTOPRAZOLE 40 MG TABLET PO SCH (10:12)
[2019-08-25] MEDS: ASPIRIN 81 MG CHEWABLE TABLETS PO SCH (10:12)
[2019-08-25] MEDS: NICOTINE 7 MG/24 HOURS TOPICAL PATCH TD SCH (10:13)
--- NOTE | 2019-08-25 15:56 | PN ---
S CIWA - CIWA Score Nausea/Vomitin-No Nausea/No Vomiting Muscle Tremors: 1-None Visible, but [place] Anxiety: 3 Agitation: 1-Slight > Activity Paroxysmal Sweats: 2 Orientation: 0-Oriented Tacttile Disturbances: 0-None Auditory Disturbances: 0-None Visual Disturbances: 0-None Headache: 0-None Present CIWA-Ar Total Score: 7 BHS Progress Note (SOAP) Subjective: 64 years old male admitted on 08/22/19 for alcohol withdrawal sx management treating with librium detox regiment feeling ok social with peers in day room participating in groups and meetings Objective: 08/25/19 15:56 Vital Signs Temperature 96.4 F L 08/25/19 12:54 Pulse Rate 72 08/25/19 12:54 Respiratory Rate 18 08/25/19 12:54 Blood Pressure 106/73 08/25/19 12:54 O2 Sat by Pulse Oximetry (%) Laboratory Last Values WBC 5.9 K/mm3 (4.0-10.0) 08/22/19 12:50 RBC 3.79 M/mm3 (4.00-5.60) L 08/22/19 12:50 Hgb 11.8 GM/dL (11.7-16.9) 08/22/19 12:50 Hct 34.6 % (35.4-49) L 08/22/19 12:50 MCV 91.5 fl (80-96) 08/22/19 12:50 MCH 31.1 pg (25.7-33.7) 08/22/19 12:50 MCHC 34.0 g/dl (32.0-35.9) 08/22/19 12:50 RDW 15.3 % (11.9-15.9) 08/22/19 12:50 Plt Count 382 K/MM3 (134-434) 08/22/19 12:50 MPV 8.1 fl (7.5-11.1) 08/22/19 12:50 Sodium 138 mmol/L (136-145) 08/22/19 12:50 Potassium 4.2 mmol/L (3.5-5.1) 08/22/19 12:50 Chloride 104 mmol/L (98-107) 08/22/19 12:50 Carbon Dioxide 27 mmol/L (21-32) 08/22/19 12:50 Anion Gap 7 MMOL/L (8-16) L 08/22/19 12:50 BUN 13.5 mg/dL (7-18) 08/22/19 12:50 Creatinine 1.1 mg/dL (0.55-1.3) 08/22/19 12:50 Est GFR (CKD-EPI)AfAm 81.22 08/22/19 12:50 Est GFR (CKD-EPI)NonAf 70.07 08/22/19 12:50 Random Glucose 81 mg/dL (74-106) 08/22/19 12:50 Calcium 9.6 mg/dL (8.5-10.1) 08/22/19 12:50 Total Bilirubin 0.5 mg/dL (0.2-1) 08/22/19 12:50 AST 10 U/L (15-37) L 08/22/19 12:50 ALT 14 U/L (13-61) 08/22/19 12:50 Alkaline Phosphatase 94 U/L (45-117) 08/22/19 12:50 Total Protein 7.4 g/dl (6.4-8.2) 08/22/19 12:50 Albumin 3.8 g/dl (3.4-5.0) 08/22/19 12:50 RPR Titer Nonreactive (NONREACTIVE) 08/22/19 12:50 lab noted Assessment: 08/25/19 15:57 alcohol withdrawal Plan: librium regument
[2019-08-25] MEDS: ATORVASTATIN CA 10 MG TABLET (FP) PO SCH (23:04)
[2019-08-25] MEDS: MELATONIN 5 MG TABLETS PO SCH (23:05)
[2019-08-25] MEDS: THIAMINE HCL 100 MG TABLET (FP) PO SCH (23:05)
[2019-08-25] MEDS: METHOCARBAMOL 500 MG TABLET PO PRN (23:06)
[2019-08-26] MEDS: hydrOXYzine PAMOATE 25 MG CAPSULE (FP) PO SCH ×5 (05:34→22:14)
[2019-08-26] MEDS: METHOCARBAMOL 500 MG TABLET PO PRN (05:34)
[2019-08-26] MEDS: chlordiazePOXIDE HCL 10 MG CAPSULE PO SCH ×2 (05:34→18:02)
[2019-08-26] MEDS: ALBUTEROL SO4 8 GM HFA INHALER IH SCH ×6 (07:05→22:14)
[2019-08-26] MEDS: PRENATAL VITAMINS W/ FOLIC ACID TABLET (FP) PO SCH (10:27)
[2019-08-26] MEDS: CARVEDILOL 25 MG TABLET (FP) PO SCH ×2 (10:27→22:14)
[2019-08-26] MEDS: PANTOPRAZOLE 40 MG TABLET PO SCH (10:27)
[2019-08-26] MEDS: ASPIRIN 81 MG CHEWABLE TABLETS PO SCH (10:27)
[2019-08-26] MEDS: NICOTINE 7 MG/24 HOURS TOPICAL PATCH TD SCH (10:30)
--- NOTE | 2019-08-26 11:40 | PN ---
S CIWA - CIWA Score Nausea/Vomitin-No Nausea/No Vomiting Muscle Tremors: 2 Anxiety: 1-Mildly Anxious Agitation: 0-Normal Activity Paroxysmal Sweats: No Perspiration Orientation: 0-Oriented Tacttile Disturbances: 0-None Auditory Disturbances: 0-None Visual Disturbances: 1-Very Mild Sensitivity Headache: 0-None Present CIWA-Ar Total Score: 4 BHS Progress Note (SOAP) Subjective: 64 years old male admitted on 08/24/19 for alcohol withdrawal sx management treating with librium detox regiment feeling better today less tremor mild anxiety slept through the night actively participating in the groups and meetings patient determines to maintain sober Objective: 08/26/19 11:41 Vital Signs Temperature 97.7 F 08/26/19 08:39 Pulse Rate 67 08/26/19 08:39 Respiratory Rate 18 08/26/19 08:39 Blood Pressure 116/68 08/26/19 08:39 O2 Sat by Pulse Oximetry (%) Laboratory Last Values WBC 5.9 K/mm3 (4.0-10.0) 08/22/19 12:50 RBC 3.79 M/mm3 (4.00-5.60) L 08/22/19 12:50 Hgb 11.8 GM/dL (11.7-16.9) 08/22/19 12:50 Hct 34.6 % (35.4-49) L 08/22/19 12:50 MCV 91.5 fl (80-96) 08/22/19 12:50 MCH 31.1 pg (25.7-33.7) 08/22/19 12:50 MCHC 34.0 g/dl (32.0-35.9) 08/22/19 12:50 RDW 15.3 % (11.9-15.9) 08/22/19 12:50 Plt Count 382 K/MM3 (134-434) 08/22/19 12:50 MPV 8.1 fl (7.5-11.1) 08/22/19 12:50 Sodium 138 mmol/L (136-145) 08/22/19 12:50 Potassium 4.2 mmol/L (3.5-5.1) 08/22/19 12:50 Chloride 104 mmol/L (98-107) 08/22/19 12:50 Carbon Dioxide 27 mmol/L (21-32) 08/22/19 12:50 Anion Gap 7 MMOL/L (8-16) L 08/22/19 12:50 BUN 13.5 mg/dL (7-18) 08/22/19 12:50 Creatinine 1.1 mg/dL (0.55-1.3) 08/22/19 12:50 Est GFR (CKD-EPI)AfAm 81.22 08/22/19 12:50 Est GFR (CKD-EPI)NonAf 70.07 08/22/19 12:50 Random Glucose 81 mg/dL (74-106) 08/22/19 12:50 Calcium 9.6 mg/dL (8.5-10.1) 08/22/19 12:50 Total Bilirubin 0.5 mg/dL (0.2-1) 08/22/19 12:50 AST 10 U/L (15-37) L 08/22/19 12:50 ALT 14 U/L (13-61) 08/22/19 12:50 Alkaline Phosphatase 94 U/L (45-117) 08/22/19 12:50 Total Protein 7.4 g/dl (6.4-8.2) 08/22/19 12:50 Albumin 3.8 g/dl (3.4-5.0) 08/22/19 12:50 RPR Titer Nonreactive (NONREACTIVE) 08/22/19 12:50 lab noted Assessment: 08/26/19 11:41 alcohol withdrawal Plan: librium regiment
[2019-08-26] MEDS: THIAMINE HCL 100 MG TABLET (FP) PO SCH (22:14)
[2019-08-26] MEDS: ATORVASTATIN CA 10 MG TABLET (FP) PO SCH (22:15)
[2019-08-26] MEDS: MELATONIN 5 MG TABLETS PO SCH (22:37)
[2019-08-27] MEDS: ALBUTEROL SO4 8 GM HFA INHALER IH SCH ×3 (02:05→09:59)
[2019-08-27] MEDS ORDERED: chlordiazePOXIDE HCL 10 MG CAPSULE PO ONE (05:00)
[2019-08-27] MEDS: hydrOXYzine PAMOATE 25 MG CAPSULE (FP) PO SCH ×2 (05:33→09:58)
[2019-08-27] MEDS: METHOCARBAMOL 500 MG TABLET PO PRN (05:34)
[2019-08-27 09:12] VITALS: BP 126/64; PULSE 73; TEMP 97.7
[2019-08-27] MEDS: NICOTINE 7 MG/24 HOURS TOPICAL PATCH TD SCH (09:57)
[2019-08-27] MEDS: ASPIRIN 81 MG CHEWABLE TABLETS PO SCH (09:58)
[2019-08-27] MEDS: PRENATAL VITAMINS W/ FOLIC ACID TABLET (FP) PO SCH (09:58)
[2019-08-27] MEDS: CARVEDILOL 25 MG TABLET (FP) PO SCH (09:58)
[2019-08-27] MEDS: PANTOPRAZOLE 40 MG TABLET PO SCH (09:58)
--- NOTE | 2019-08-27 11:59 | DS ---
[facility] Detox Discharge Summary Admission Date: 08/22/19 Discharge Date: 08/27/19 - History Present History: Alcohol Dependence Additional Comments: 64 years old male admitted on 08/24/19 for alcohol withdrawal sx management treated with librium detox regiment Mr Lima has completed the librium regiment and is tolerated well alert oriented x 3 cardiac s1s2 regular rate rhythm ekg indicated left ventricular hypertrophy respiratory clear lungs bilaterally on auscultation skin warm and dry Pertinent Past History: time for discharge 33 minutes - Physical Exam Results Vital Signs: Vital Signs Temperature 97.7 F 08/27/19 08:35 Pulse Rate 73 08/27/19 08:35 Respiratory Rate 16 08/27/19 08:35 Blood Pressure 126/64 08/27/19 08:35 O2 Sat by Pulse Oximetry (%) Pertinent Admission Physical Exam Findings: alcohol withdrawal Laboratory Last Values WBC 5.9 K/mm3 (4.0-10.0) 08/22/19 12:50 RBC 3.79 M/mm3 (4.00-5.60) L 08/22/19 12:50 Hgb 11.8 GM/dL (11.7-16.9) 08/22/19 12:50 Hct 34.6 % (35.4-49) L 08/22/19 12:50 MCV 91.5 fl (80-96) 08/22/19 12:50 MCH 31.1 pg (25.7-33.7) 08/22/19 12:50 MCHC 34.0 g/dl (32.0-35.9) 08/22/19 12:50 RDW 15.3 % (11.9-15.9) 08/22/19 12:50 Plt Count 382 K/MM3 (134-434) 08/22/19 12:50 MPV 8.1 fl (7.5-11.1) 08/22/19 12:50 Sodium 138 mmol/L (136-145) 08/22/19 12:50 Potassium 4.2 mmol/L (3.5-5.1) 08/22/19 12:50 Chloride 104 mmol/L (98-107) 08/22/19 12:50 Carbon Dioxide 27 mmol/L (21-32) 08/22/19 12:50 Anion Gap 7 MMOL/L (8-16) L 08/22/19 12:50 BUN 13.5 mg/dL (7-18) 08/22/19 12:50 Creatinine 1.1 mg/dL (0.55-1.3) 08/22/19 12:50 Est GFR (CKD-EPI)AfAm 81.22 08/22/19 12:50 Est GFR (CKD-EPI)NonAf 70.07 08/22/19 12:50 Random Glucose 81 mg/dL (74-106) 08/22/19 12:50 Calcium 9.6 mg/dL (8.5-10.1) 08/22/19 12:50 Total Bilirubin 0.5 mg/dL (0.2-1) 08/22/19 12:50 AST 10 U/L (15-37) L 08/22/19 12:50 ALT 14 U/L (13-61) 08/22/19 12:50 Alkaline Phosphatase 94 U/L (45-117) 08/22/19 12:50 Total Protein 7.4 g/dl (6.4-8.2) 08/22/19 12:50 Albumin 3.8 g/dl (3.4-5.0) 08/22/19 12:50 RPR Titer Nonreactive (NONREACTIVE) 08/22/19 12:50 lab noted - Treatment Hospital Course: Detox Protocol Followed, Detoxed Safely, Responded well, Discharged Condition Good, Rehab Referral Accepted Patient has Accepted a Re[facility] Referral to: [facility] - Medication Discharge Medications: Ambulatory Orders Albuterol Sulfate Inhaler - [Ventolin HFA Inhaler -] 2 inh PO Q4H 05/03/18 Aspirin [ASA -] 81 mg PO DAILY 05/03/18 Carvedilol 25 mg PO BID 05/03/18 Chlorpromazine HCl 50 mg PO BID 06/25/19 Atorvastatin Ca [Lipitor] 10 mg PO HS 08/27/19 - Diagnosis (1) Alcohol dependence with withdrawal, uncomplicated Status: Acute (2) BPH (benign prostatic hyperplasia) Status: Chronic Qualifiers: Lower urinary tract symptom presence: symptoms absent Qualified Code(s): N40.0 - Benign prostatic hyperplasia without lower urinary tract symptoms (3) CAD (coronary artery disease) of artery bypass graft Status: Chronic Qualifiers: [place] vs. transplanted heart: unspecified whether [place] or transplanted heart Associated angina: without angina Qualified Code(s): I25.810 - Atherosclerosis of coronary artery bypass graft(s) without angina pectoris (4) HLD (hyperlipidemia) Status: Chronic Qualifiers: Hyperlipidemia type: pure hypertriglyceridemia Qualified Code(s): E78.1 - Pure hyperglyceridemia (5) HTN (hypertension), benign Status: Chronic (6) Hepatitis C Status: Chronic Qualifiers: Viral hepatitis chronicity: carrier Qualified Code(s): B18.2 - Chronic viral hepatitis C (7) Nicotine dependence Status: Acute Qualifiers: Nicotine product type: cigarettes Substance use status: in withdrawal Qualified Code(s): F17.213 - Nicotine dependence, cigarettes, with withdrawal - AMA Did Patient Leave Against Medical Advice: No CIWA Score - CIWA Score Nausea/Vomitin-No Nausea/No Vomiting Muscle Tremors: 1-None Visible, but [place] Anxiety: 1-Mildly Anxious Agitation: 0-Normal Activity Paroxysmal Sweats: No Perspiration Orientation: 0-Oriented Tacttile Disturbances: 0-None Auditory Disturbances: 0-None Visual Disturbances: 0-None Headache: 0-None Present CIWA-Ar Total Score: 2
== END 2019-08-27 11:04 | disposition other institution (70) | DRG 897 ==
LOC: YASAS 12:31 → Y3N 14:59
PROVIDERS: ADMIT Allergy & Immunology; ATTEND Allergy & Immunology
PROC: HZ2ZZZZ Detoxification Services for Substance Abuse Treatment (ICD-10-PCS; principal; 2019-08-22)
DX: F10.230 Alcohol dependence with withdrawal, uncomplicated (principal); F14.20 Cocaine dependence, uncomplicated; I25.810 Atherosclerosis of coronary artery bypass graft(s) without angina pectoris; F17.213 Nicotine dependence, cigarettes, with withdrawal; D64.9 Anemia, unspecified; I10 Essential (primary) hypertension; I25.2 Old myocardial infarction; Z95.1 Presence of aortocoronary bypass graft; E78.1 Pure hyperglyceridemia; J44.9 Chronic obstructive pulmonary disease, unspecified; J45.998 Other asthma; B18.2 Chronic viral hepatitis C; N40.0 Benign prostatic hyperplasia without lower urinary tract symptoms; Z85.46 Personal history of malignant neoplasm of prostate
CPT/HCPCS: 36415; 80053; 85027; 86593; Q0162

== ENCOUNTER 2019-08-27 11:09 | Inpatient (IN) | payer MEDICARE ==
[2019-08-27 11:15] VITALS: TEMP 98
[2019-08-27] MEDS ORDERED: hydrOXYzine PAMOATE 25 MG CAPSULE (FP) PO PRN (11:28)
[2019-08-27] MEDS ORDERED: LOPERAMIDE HCL 2 MG CAPSULE PO PRN (11:28)
[2019-08-27] MEDS ORDERED: MENTHOL/PHENOL 1 EACH UD MM PRN (11:28)
[2019-08-27] MEDS ORDERED: MAGNESIUM CITRATE 300 ML BOTTLE PO PRN (11:28)
[2019-08-27] MEDS ORDERED: MAG HYDROX/AL HYDROX/SIMETH 30 ML UNIT-DOSE CUP PO PRN (11:28)
[2019-08-27] MEDS ORDERED: guaiFENesin 200 MG/10 ML 10 ML UNIT-DOSE CUPS PO PRN (11:28)
[2019-08-27] MEDS ORDERED: IBUPROFEN 400 MG TABLET (FP) PO PRN (11:28)
[2019-08-27] MEDS ORDERED: NICOTINE POLACRILEX 2 MG GUM BUC PRN (11:28)
[2019-08-27] MEDS ORDERED: ACETAMINOPHEN 325 MG TABLET (FP) PO PRN (11:28)
[2019-08-27] MEDS ORDERED: MAGNESIUM HYDROX 2400MG/30ML ORAL SUSPENSION 30 ML CUP PO PRN (11:28)
[2019-08-27] MEDS ORDERED: P-EPHED 60MG/TRIPROLIDI 2.5MG TABLET PO PRN (11:28)
--- NOTE | 2019-08-27 11:52 | PN ---
[facility] Progress Note Note: Patient admitted to 3w from 3, has thorazine in his possessions for hiccups, c/o lower back pain. Here for ETOH rehab, completed detox. medications reviewed, labs reviewed, previous admissions reviewed, problem list reviewed. Vital Signs Period Temp Pulse Resp BP Sys/Box Pulse Ox Last 24 Hr 98 F 64 18 124/66 P/E: general: no apparent distress HEENTM: normocephalic Neck: supple Resp: unlabored Heart: s1 s2 MSK: full weight bearing, steady gait A/P: ETOH use: continue rehab, hydration, safety, standing orders placed, home medications ordered LBP: lidoderm patch ordered Chronic hiccups: patient has thorazine in his possessions, he will be assisted to get his own medications; order placed.
[2019-08-27] MEDS ORDERED: LIDOCAINE 5% TOPICAL PATCH TP SCH (12:00)
[2019-08-27] MEDS: ALBUTEROL SO4 8 GM HFA INHALER IH SCH ×4 (14:04→22:56)
[2019-08-27] MEDS ORDERED: PT OWN MED DRAWER 7, Y5N ONE ×2 (15:51→22:52)
[2019-08-27 20:41] VITALS: BP 125/68; PULSE 82
[2019-08-27] MEDS ORDERED: LIDOCAINE PATCH REMOVAL MC SCH (22:00)
[2019-08-27] MEDS ORDERED: THIAMINE HCL 100 MG TABLET (FP) PO SCH (22:00)
[2019-08-27] MEDS ORDERED: ATORVASTATIN CA 10 MG TABLET (FP) PO SCH (22:00)
[2019-08-27] MEDS ORDERED: CARVEDILOL 25 MG TABLET (FP) PO SCH (22:00)
[2019-08-27] MEDS ORDERED: MELATONIN 5 MG TABLETS PO SCH (22:00)
--- NOTE | 2019-08-28 06:22 | DS ---
[facility] Rehab Discharge Summary - [facility] Rehab Discharge Summary Admission Date: 08/27/19 Discharge Date: 08/28/19 - History Additional Comments: Patient's thorazine order from his PCP indicates 50mg oral prn. Patient requested that order should be increased to 150-200mg because he wants to take his medication as he wishes. Side effects of non compliance with medication administration reinforced. Patient decided to sign out because he said he takes his medications as he wants and nobody will dictate to him how and when to take his medication. Patient is alert and oriented to person, place and time. He is in no acute distress at this time. Processing Engineer informed by the nurse of patient's decision to leave. Patient reports that someone will pick him up. Pertinent Past History: Alcohol dependence cocaine dependence bph CAD hyperlipidemia hypertension Hep C - Discharge Physical Exam Vital Signs: Vital Signs Temperature 98 F 08/27/19 11:14 Pulse Rate 82 08/27/19 20:40 Respiratory Rate 18 08/27/19 20:40 Blood Pressure 125/68 08/27/19 20:40 O2 Sat by Pulse Oximetry (%) Pertinent Admission Physical Exam Findings: Alcohol dependence Cocaine dependence - Medication Discharge Medications: Ambulatory Orders Albuterol Sulfate Inhaler - [Ventolin HFA Inhaler -] 2 inh PO Q4H 05/03/18 Aspirin [ASA -] 81 mg PO DAILY 05/03/18 Carvedilol 25 mg PO BID 05/03/18 Chlorpromazine HCl 50 mg PO BID 06/25/19 Atorvastatin Ca [Lipitor] 10 mg PO HS 08/27/19 - Medication-Assisted Treatment (MAT) Medication-Assisted Treatment (MAT): No - Discharge Instructions Diet, activity, other medical instructions: Diet: [place] healthy diet Activity: As tolerated Other medical instructions: Follow up with PCP to review medications Continue to take medications as instructed - Diagnosis (1) Alcohol dependence Status: Chronic Qualifiers: Substance use status: uncomplicated Qualified Code(s): F10.20 - Alcohol dependence, uncomplicated (2) Anemia Status: Chronic Qualifiers: Anemia type: unspecified type Qualified Code(s): D64.9 - Anemia, unspecified (3) Nicotine dependence Status: Chronic Qualifiers: Nicotine product type: cigarettes Substance use status: uncomplicated Qualified Code(s): F17.210 - Nicotine dependence, cigarettes, uncomplicated (4) BPH (benign prostatic hyperplasia) Status: Chronic Qualifiers: Lower urinary tract symptom presence: symptoms absent Qualified Code(s): N40.0 - Benign prostatic hyperplasia without lower urinary tract symptoms (5) CAD (coronary artery disease) of artery bypass graft Status: Chronic Qualifiers: [place] vs. transplanted heart: unspecified whether [place] or transplanted heart Associated angina: without angina Qualified Code(s): I25.810 - Atherosclerosis of coronary artery bypass graft(s) without angina pectoris (6) Cocaine dependence, uncomplicated Status: Chronic (7) HLD (hyperlipidemia) Status: Chronic Qualifiers: Hyperlipidemia type: pure hypertriglyceridemia Qualified Code(s): E78.1 - Pure hyperglyceridemia (8) HTN (hypertension), benign Status: Chronic (9) Hepatitis C Status: Chronic Qualifiers: Viral hepatitis chronicity: carrier Qualified Code(s): B18.2 - Chronic viral hepatitis C - AMA Did Patient Leave Against Medical Advice: Yes
[2019-08-28] MEDS ORDERED: NICOTINE 7 MG/24 HOURS TOPICAL PATCH TD SCH (10:00)
[2019-08-28] MEDS ORDERED: PRENATAL VITAMINS W/ FOLIC ACID TABLET (FP) PO SCH (10:00)
[2019-08-28] MEDS ORDERED: ASPIRIN 81 MG CHEWABLE TABLETS PO SCH (10:00)
== END 2019-08-27 23:00 | disposition left against medical advice (07) | DRG 894 ==
LOC: YASAS 11:09 → Y3W 11:10
PROVIDERS: ADMIT Allergy & Immunology; ATTEND Allergy & Immunology
PROC: HZ42ZZZ Group Counseling for Substance Abuse Treatment, Cognitive-Behavioral (ICD-10-PCS; principal; 2019-08-27)
DX: F10.20 Alcohol dependence, uncomplicated (principal); F14.20 Cocaine dependence, uncomplicated; I25.810 Atherosclerosis of coronary artery bypass graft(s) without angina pectoris; F17.210 Nicotine dependence, cigarettes, uncomplicated; I10 Essential (primary) hypertension; Z95.1 Presence of aortocoronary bypass graft; E78.5 Hyperlipidemia, unspecified; N40.0 Benign prostatic hyperplasia without lower urinary tract symptoms; B18.2 Chronic viral hepatitis C; M54.5 Low back pain; R06.6 Hiccough